=== PATIENT | male | born 1965 | race Caucasian/White ===

== ENCOUNTER 2024-05-29 06:28 | Day surgery (SDC) | payer BC, SELFPAY ==
[2024-05-20 14:15] VITALS: BMI 25.0
[2024-05-29] VITALS (7 sets, daily range): BP systolic 121–146; BP diastolic 81–92; BMI 25.0
[2024-05-29] MEDS: NORMOSOL-R/PLASMALYTE-A 1000 IV (11:36)
[2024-05-29] MEDS: CELEBREX 200 MG PO (11:36)
[2024-05-29] MEDS: TYLENOL 1000 MG PO (11:36)
== END 2024-05-29 16:10 | disposition home or self-care (01) ==
LOC: SDS 06:28
PROVIDERS: ATTENDING PHYSICIAN Specialist; FAMILY PHYSICIAN Nurse Practitioner Family
DX: S83.231A Complex tear of medial meniscus, current injury, right knee, initial encounter (principal); X58.XXXA Exposure to other specified factors, initial encounter; M94.261 Chondromalacia, right knee
CPT/HCPCS: 29879; 29881; 36415; 93005